=== PATIENT | female | born 1955 | race Caucasian/White ===

== ENCOUNTER 2020-10-15 10:09 | Outpatient (CLI) | payer BC, SELFPAY ==
--- NOTE | ~2020-10-15 | MR_ITS ---
EXAMINATION: MR brain/brain stem wo/w con EXAM DATE: 10/15/2020 13:41 INDICATION: R51.9 - Headache, unspecified/STAT . Left eye vision disturbance. TECHNIQUE: Magnetic resonance imaging (MRI) of the brain/brain stem obtained without contrast. Sagit rosa T1, axial diffusion, gradient echo (T2*), T1, T2, FLAIR sequences obtained. Patient was then inj ected with 15 cc intravenous Multihance contrast. Axial and coronal postcontrast T1 weighted sequence s obtained. Correlation is made to head CT from 10/14/2020. FINDINGS: There is an acute infarction in the left occipital lobe measuring up to 1.5 cm in dimension . No other acute infarctions. Mild microangiopathy. Flow voids are seen in the cerebral arteries on t he T2 weighted sequences consistent with their expected patency. There is no acute hemorrhage seen on the T2*, a susceptibility sensitive sequence. No brain mass, extra-axial collections or obstructive hydrocephalus. Left vertebral artery dominant. There are no areas of abnormal enhancement on the pos t contrast images. IMPRESSION: Small acute left occipital lobe infarction. Reviewed, dictated and finalized at location B.
[2020-10-15 13:14] LABS: Estimated Glomerular Filt Rate > 60
== END 2020-10-15 10:10 | disposition home or self-care (01) ==
PROVIDERS: PCP Internal Medicine; Visit Provider Clinical Nurse Specialist
DX: R51.9 Headache, unspecified (principal); H53.8 Other visual disturbances; I63.9 Cerebral infarction, unspecified
CPT/HCPCS: 70553; A9577

== ENCOUNTER → 2020-12-04 16:25 | Outpatient (CLI) | payer BC, SELFPAY ==
--- NOTE | ~2020-12-04 | MM_ITS ---
EXAMINATION: MM screening lia BI w diana HISTORY: Screening mammogram TECHNIQUE: Craniocaudal and mediolateral oblique 3-D tomosynthesis images were obtained and synthetic 2-D images were generated. CAD analysis was submitted and interpreted. COMPARISON: 12/06/2018, 10/01/2017, 12/05/2015 bilateral digital screening mammogram examinations BREAST PARENCHYMAL COMPOSITION: The breasts are heterogeneously dense, which may obscure small masses . FINDINGS: Increased calcifications noted on the left. Magnification views are recommended for better definition. No suspicious mass, architectural distortion, skin thickening or retraction of either breast or malig nant calcification on the right breast is evident. No other significant new or developing density or significant change is noted. IMPRESSION: 1. Increased left breast calcifications 2. Diagnostic left mammogram with magnification views is recommended for better definition of the hoa cifications. BI-RADS Category 0: Incomplete: Needs additional imaging evaluation. Reviewed, dictated and finalized at location A. IMPRESSION: 1. Increased left breast calcifications 2. Diagnostic left mammogram with magnification views is recommended for better definition of the calcifications. BI-RADS Category 0: Incomplete: Needs additional imaging evaluation.
== END ==
PROVIDERS: PCP Internal Medicine; Visit Provider Obstetrics & Gynecology
DX: Z12.31 Encounter for screening mammogram for malignant neoplasm of breast (principal); R92.8 Other abnormal and inconclusive findings on diagnostic imaging of breast
CPT/HCPCS: 77063; 77067

== ENCOUNTER → 2021-01-07 06:54 | Outpatient (CLI) | payer BC, SELFPAY ==
[2021-01-07 20:36] LABS: SARS-CoV-2 RNA PCR Negative
== END ==
PROVIDERS: PCP Internal Medicine; Visit Provider Clinical Nurse Specialist
DX: Z20.822 Contact with and (suspected) exposure to COVID-19 (principal); R05 Cough
CPT/HCPCS: C9803; U0003; U0005

== ENCOUNTER → 2021-01-31 08:19 | Outpatient (CLI) | payer BC, SELFPAY ==
--- NOTE | ~2021-01-31 | MM_ITS ---
EXAMINATION: MM diagnostic mammo unilat LT HISTORY: Indeterminate left breast calcifications on screening mammogram TECHNIQUE: Magnification views of the left breast were performed. CAD analysis was submitted and inte rpreted. COMPARISON: 12/04/2020, 12/06/2018, 10/01/2017 BREAST PARENCHYMAL COMPOSITION: The breasts are heterogeneously dense, which may obscure small masses . FINDINGS: There are grouped calcifications in the anterior third of the slightly upper breast at the 12:00 location 1.5 cm from the nipple which appear to be dystrophic in morphology. No suspicious mass or architectural distortion are identified. IMPRESSION: 1. Probably benign left breast calcifications. 2. Recommend 6 month follow-up left diagnostic mammogram. BI-RADS category 3, probably benign findings. Reviewed, dictated and finalized at location A.
== END ==
PROVIDERS: PCP Internal Medicine; Visit Provider Obstetrics & Gynecology
DX: R92.8 Other abnormal and inconclusive findings on diagnostic imaging of breast (principal)
CPT/HCPCS: 77065

== ENCOUNTER 2021-02-05 01:59 | Day surgery (SDC) | payer BC, SELFPAY ==
[2021-01-27 14:57] VITALS: BMI 27.0
[2021-02-05 10:24] VITALS: BP 110/67; PULSE 72; RESP 20; TEMP 36.5; O2SAT 100
[2021-02-05] MEDS: LACTATED RINGERS 1,000 ML 150 ML IV CONT (10:35)
--- NOTE | 2021-02-05 10:45 | WPDANESEPPF ---
Anes - Initial Pre Proc Eval Procedure: Operation Date: 02/05/21 11:00 Proposed Procedures p Screening Colonoscopy - Saul Massey MD Date/Time: 02/05/21 10:45 Surgeon: Saul Massey MD Pre Op Diagnosis: neoplasm screening Patient Data Age: 65 Gender: F Height: 1.68 m Weight: 74.3 kg Last Vital Signs Temp 36.5 C 02/05/21 10:24 Pulse 72 02/05/21 10:24 Resp 20 02/05/21 10:24 BP 110/67 02/05/21 10:24 Pulse Ox 100 02/05/21 10:24 Allergies Allergy/AdvReac Type Severity Reaction Status Date / Time No Known Allergies Allergy Unknown Verified 02/05/21 10:22 Home Medications Medication Instructions Recorded Confirmed Type multivitamin 1 tablet PO DAILY 09/27/20 01/27/21 History aspirin 325 mg tablet 325 mg PO DAILY 10/23/20 01/27/21 History atorvastatin 80 mg tablet 80 mg PO DAILY 10/23/20 01/27/21 History cholecalciferol (vitamin D3) 25 mcg PO DAILY 01/27/21 01/27/21 History [Vitamin D3] Patient hx anesthesia problems: none Family hx anesthesia problems: none PMFSH Past Medical History Medical History Colon cancer screening Depression Osteopenia Stroke Vitamin D deficiency Surgical History Surgical History History of bladder surgery Family History Family History Father Family history of heart disease in male family member before age 55 Mother Hypertension Social History Social History Smoking packs per day: 1 Smoking cigarettes per day: 20.0 Years smoked: 40 Smoking pack-years: 40.00 Smoking status: Former smoker Tobacco type: cigarettes Smoking end date: 06/14/17 Alcohol intake: former Alcohol use details: social Substance use: never Living arrangements: with family Spiritual care concerns: No Anes - Eval Final PreProcedure Day of Procedure 02/05/21 10:45 Patient weight: overweight Heart: regular rate and rhythm Lungs: clear to auscultation Airway: Mallampati scale class II Neurological: alert and oriented Last oral intake: >/= 8 hours ASA classification: III Emergent: no Anesthetic plan: proceed Anesthesia type and monitoring: general GIVS and standard monitoring Informed Consent: The patient's anesthetic plan and its attendant risks and benefits were discussed with the patient/family/POA. Questions were solicited and answers provided to the satisfaction of the patient/family/POA.
--- NOTE | 2021-02-05 10:52 | PM.HPGS ---
History of Present Illness History of Present Illness Consent: Risks, benefits, and alternatives have been discussed and questions answered. Patient agrees to proceed with procedure. Chief complaint: neoplasm screening Narrative: Kathia Pearson is a 65 year old female here for screening colonoscopy, last one over 10 years ago. Review of Systems Constitutional: Constitutional: Denies headache(s) and Denies weakness Eyes: Eyes: Denies blurry vision ENT: Reports Normal hearing present, Denies headache(s) and Denies neck pain Cardiovascular: Cardiovascular: Denies chest pain and Denies dyspnea Respiratory: Respiratory: Denies dyspnea Gastrointestinal: Gastrointestinal: Reports no additional gastrointestinal complaints Genitourinary: Genitourinary: Denies dysuria Musculoskeletal: Musculoskeletal: Denies neck pain Integumentary/Breasts: Skin/Breast: Denies dry skin Neurologic: Reports Normal hearing present, Denies headache(s) and Denies weakness Psychiatric: Psychiatric: Denies anxiety Endocrine: Endocrine: Denies change in body appearance Hematologic/Lymphatic: Hematologic/Lymphatic: Denies easy bleeding Allergic/Immunologic: Allergic/Immunologic: Denies urticaria PMFSH Past Medical History Medical History (Updated 02/05/21 @ 10:53 by Saul Massey MD) Colon cancer screening Depression Osteopenia Stroke Vitamin D deficiency Surgical History Surgical History History of bladder surgery Family History Family History Father Family history of heart disease in male family member before age 55 Mother Hypertension Social History Social History Smoking packs per day: 1 Smoking cigarettes per day: 20.0 Years smoked: 40 Smoking pack-years: 40.00 Smoking status: Former smoker Tobacco type: cigarettes Smoking end date: 06/14/17 Alcohol intake: former Alcohol use details: social Substance use: never Living arrangements: with family Spiritual care concerns: No Meds Home Medications and Allergies Home Medications Medication Instructions Recorded Confirmed Type multivitamin 1 tablet PO DAILY 09/27/20 01/27/21 History aspirin 325 mg tablet 325 mg PO DAILY 10/23/20 01/27/21 History atorvastatin 80 mg tablet 80 mg PO DAILY 10/23/20 01/27/21 History cholecalciferol (vitamin D3) 25 mcg PO DAILY 01/27/21 01/27/21 History [Vitamin D3] Allergies Allergy/AdvReac Type Severity Reaction Status Date / Time No Known Allergies Allergy Unknown Verified 02/05/21 10:22 Vital Signs Vital Signs - 24 hr 02/05/21 10:24 Temperature 97.7 F Pulse Rate 72 Respiratory Rate 20 Blood Pressure 110/67 Pulse Oximetry 100 Exam Const: General: comfortable and no acute distress HENMT: General nose exam: Normal nares present Eyes: General: appearance normal, both eyes and all related structures Neck: Neck: no JVD Resp: Auscultation: clear to auscultation bilaterally Cardio: Rate: regular rate Rhythm: regular rhythm GI: Inspection: non-distended GI Palp: Yes Soft to palpation Skin: General skin exam: normal color Neuro: General: gait normal Speech: normal speech Extrem: General: normal to inspection Psych: Mental Status: mental status grossly normal Assessment and Plan Assessment and plan (1) Colon cancer screening: Code(s): Z12.11 - Encounter for screening for malignant neoplasm of colon Status: Acute Assessment and Plan: colonoscopy
[2021-02-05 11:18] VITALS: BP 109/75; PULSE 78; RESP 15; O2SAT 98
[2021-02-05 11:28] VITALS: BP 119/79; PULSE 62; RESP 16; O2SAT 100
[2021-02-05 11:38] VITALS: BP 118/75; PULSE 61; RESP 15; O2SAT 100
== END 2021-02-05 11:56 | disposition home or self-care (01) ==
PROVIDERS: PCP Internal Medicine; Visit Provider Internal Medicine Gastroenterology
PROC: 0DJD8ZZ Inspection of Lower Intestinal Tract, Via Natural or Artificial Opening Endoscopic (ICD-10-PCS; CPT 45378; principal; 2021-02-05 11:00)
DX: Z12.11 Encounter for screening for malignant neoplasm of colon (principal); K57.30 Diverticulosis of large intestine without perforation or abscess without bleeding; K64.8 Other hemorrhoids; F32.9 Major depressive disorder, single episode, unspecified; M19.90 Unspecified osteoarthritis, unspecified site; Z86.73 Personal history of transient ischemic attack (TIA), and cerebral infarction without residual deficits; E55.9 Vitamin D deficiency, unspecified; Z87.891 Personal history of nicotine dependence; Z79.82 Long term (current) use of aspirin
CPT/HCPCS: 45378; J2704; J7120

== ENCOUNTER 2021-03-25 10:43 | Outpatient (CLI) | payer BC, SELFPAY ==
--- NOTE | ~2021-03-25 | XR_ITS ---
XR hip LT min 2V DATE: 03/25/2021 11:07 INDICATION: Left hip pain TECHNIQUE: AP and lateral views COMPARISON: None FINDINGS: No fracture or dislocation or avascular necrosis or bone destruction. The left hip joint i s well preserved. IMPRESSION: No significant abnormality Reviewed, dictated and finalized at location B. IMPRESSION: No significant abnormality
== END 2021-03-25 10:44 | disposition home or self-care (01) ==
LOC: ANHIMG 10:47
PROVIDERS: PCP Internal Medicine; Visit Provider Clinical Nurse Specialist
DX: M25.552 Pain in left hip (principal)
CPT/HCPCS: 73502

== ENCOUNTER 2021-04-28 10:00 | Outpatient (RCR) | payer BC, SELFPAY ==
--- NOTE | 2021-03-28 16:13 | PTOPEVAL ---
PHYSICAL THERAPY EVALUATION Thank you for referring Kathia Pearson to [facility].? Kathia was evaluated for the dx of left hip pain/bursitis. The patient is scheduled to be seen for therapy? 2 x/week for 4 weeks. Please review, sign, date and return this plan of care EMILY. I agree with and certify that the following plan of care is medically necessary. Referring Physician Date Attending Provider: Rashmi Ponce NP *PT Outpatient Evaluation Start: 03/28/21 12:35 Freq: Status: Active Protocol: Document 03/28/21 12:35 [facility] (Rec: 03/28/21 13:47 [facility] [id number]) Therapy Assessment Status Assessment Status Assessment Status Evaluation Evaluation Information Problem Diagnosis left hip pain Onset 3 years ago; worse since a year ago Cause no injury Additional Evaluation Detail The patient reports having left hip pain that started when trying to lift her leg in the tub, to shave. Now has trouble with sitting in a car/ on couch. The patient reports having occasions of tripping over her left foot at times; and occasionally has pain with left foot weightbearing. The patient has trouble putting her left ankle up on her right knee to tie shoes. The patient is also having trouble sleeping due to hip pain. Subjective Information The patient rides her bike 4x Query Text:As Reported By Patient/ a week for 10 miles or more; Family reports no pain with riding and walks regularly for 30 minutes. Diagnostic Tests X-Rays For This Problem Yes: hip Ok Previous Treatments Previous Treatments For This Problem none Pain Assessment Timing of Pain Assessment Timing of Pain Assessment Assessment Pain Scale Pain Scale Used Numeric (1 - 10) Self Report Pain Assessment Left Lateral Hip(s) Reported Pain Level 0 Pain Description Tender on Palpation Other Pain Description up to 10 after sitting or being still too long Pain Aggravating Factors Sitting,Weight Bearing/ Standing Pain Behaviors Guarding,Limping,Moaning Pain Score Pain Score 0: Self Report Interventions Used Interventions Used By Clinicians Education Pain Relief Interventions Used By
--- NOTE | 2021-04-17 09:03 | PCPTNOTE ---
Patient called to cancel today's appointment with front desk manager stating she was sick.
--- NOTE | 2021-04-28 10:52 | PTOPEVAL ---
PHYSICAL THERAPY DISCHARGE Thank you for referring Kathia Pearson to [facility].? The patient has completed 8 visits for the dx of left hip bursitis/pain. Goals are partially met and skilled PT peaked. DC PT. Please review, sign, date and return this plan of care EMILY. I agree with and certify that the following plan of care is medically necessary. Referring Physician Date Attending Provider: Rashmi Ponce NP *PT Outpatient Evaluation Start: 03/28/21 12:35 Freq: Status: Active Protocol: Document 04/28/21 10:04 [facility] (Rec: 04/28/21 10:46 [facility] [id number]) Therapy Assessment Status Assessment Status Assessment Status Discharge Evaluation Information Problem Diagnosis left hip pain Onset 3 years ago; worse since a year ago Cause no injury Additional Evaluation Detail The patient reports still walking and biking without pain but still having trouble with sitting. The patient feels she is 50-75% better with sitting at her hip. The patient feels she just needs further strengthening. The patient doesn't have a follow up for the MD and feels she doesn't need one- will call the MD if she feels the exercises doesn't get her far enough. Pain Assessment Timing of Pain Assessment Timing of Pain Assessment Assessment Pain Scale Pain Scale Used Numeric (1 - 10) Self Report Pain Assessment Left Lateral Hip(s) Reported Pain Level 0 Pain Frequency Acute,Chronic Other Pain Description 5 with sitting/riding in the car Pain Score Pain Score 0: Self Report Lower Extremity Range of Motion General Lower Extremity Range of Motion Reason Not Measured WFL/Left,WFL/Right Limitations Muscle Length Restriction,Pain Gross Lower Extremity Range of Motion 50-75% decreased pain with ITB Comments band with adduction left hip Lower Extremity Muscle Strength Testing General Lower Extremity Strength Reason Not Measured WNL/Left,WNL/Right Gross Lower Extremity Strength jose. hamstrings 4/5, glut meds 4/5 (improved 1/2 grade) Muscle Length Testing Muscle Length Testing Piriformis w/Hip Flexion >90 Degrees (R) Mild Tightness,(L) Mild Tightness Percy's Test Hip Muscle Length (R) Mild Tightness,(L) Mild
== END 2021-04-28 16:23 | disposition home or self-care (01) ==
LOC: ANHPT 10:00
PROVIDERS: PCP Internal Medicine; Visit Provider Nurse Practitioner
DX: M25.552 Pain in left hip (principal)
CPT/HCPCS: 97014; 97110; 97140; 97162; G0283

== ENCOUNTER 2021-05-30 12:43 | Outpatient (CLI) | payer BC, SELFPAY ==
--- NOTE | ~2021-05-30 | DEXA_ITS ---
Bone Density Report Name: DEVENDRA CAMPBELL Age: 65 Sex: Female Ethnicity: White Date of : 1955 Indication: osteopenia; postmenopausal Referring Provider: Patricia Vaughan Study: Bone densitometry was performed. Exam Date: May 30, 2021 Accession number: [id number] Bone Density: Region BMD T-score Z-score Classification AP Spine (L1-L4) 0.834 -1.9 -0.3 Osteopenia Femoral Neck (Left) 0.632 -2.0 -0.5 Osteopenia Total Hip (Left) 0.838 -0.9 0.3 Normal Total Hip Bilateral Avg 0.803 -1.1 0.0 Osteopenia Femoral Neck (Right) 0.601 -2.2 -0.8 Osteopenia Total Hip (Right) 0.767 -1.4 -0.3 Osteopenia World Health Organization criteria for BMD impression classify patients as: Normal (T-score at or above -1.0), Osteopenia (T-score between -1.0 and -2.5), or Osteoporosis (T-score at or below -2.5). 10-year Fracture Risk(1): Major Osteoporotic Fracture 11% Hip Fracture 1.7% Reported Risk Factors: [place] (), Neck BMD=0.601, BMI=25.1 (1) FRAX(R) Version 3.08. Fracture probability calculated for an untreated patient. Fracture probability may be lower if the patient has received treatment. Previous Exams: Region Exam Age BMD T-score BMD Change BMD Change Date g/cm2 vs Baseline vs Previous AP Spine(L1-L4) 05/30/2021 65 0.834 -1.9 -0.112(-11.8%) -0.093(-10.0%) 09/14/2009 53 0.927 -1.1 -0.019(-2.0%) -0.019(-2.0%) 12/06/2007 52 0.945 -0.9 Total Hip(Left) 05/30/2021 65 0.838 -0.9 -0.018(-2.1%)# -0.050(-5.6%)# 09/14/2009 53 0.887 -0.4 0.032(3.7%)* 0.032(3.7%)* 12/06/2007 52 0.855 -0.7 Total Hip(Right) 05/30/2021 65 0.767 -1.4 -0.059(-7.1%)# -0.091(-10.6%) 09/14/2009 53 0.858 -0.7 0.032(3.9%)* 0.032(3.9%)* 12/06/2007 52 0.826 -1.0 *Denotes significance at 95% confidence level, LSC for AP Spine = 0.022 g/cm2, LSC for Total Hip = 0.027 g/cm2 Clinical Information Provided by Patient: Has used the following medications: Vitamin D Patient maximum height was 67.5 Menopause Age: 52 Drinks caffeinated beverages Onset of menses at age 18 Number of children 1 Impression: The patient has low bone mass, based on the Right Femoral Neck T-score. The patient has an estimated ten-year risk of hip fracture of 1.7% and an estimated ten-year risk of major fracture of 11%, based on the WHO FRAX algorithm. No significant bone loss was observed. Discussion: BONE DENSITY IS LOW AT ONE OR MORE SKELETAL SITES
== END 2021-05-30 12:44 | disposition home or self-care (01) ==
LOC: ANHIMG 12:44
PROVIDERS: PCP Internal Medicine; Visit Provider Clinical Nurse Specialist
DX: Z78.0 Asymptomatic menopausal state (principal); M85.89 Other specified disorders of bone density and structure, multiple sites
CPT/HCPCS: 77080

== ENCOUNTER 2021-08-04 11:13 | Outpatient (CLI) | payer BC, SELFPAY ==
--- NOTE | ~2021-08-04 | MM_ITS ---
EXAMINATION: MM diagnostic mammo unilat LT HISTORY: Six-month follow-up of calcifications TECHNIQUE: Digital ML, MLO and cc images and magnification views in ML and craniocaudal views.. CAD a nalysis was submitted and interpreted. COMPARISON: 01/31/2021 diagnostic left mammogram 12/04/2020 bilateral screening mammogram BREAST PARENCHYMAL COMPOSITION: The breasts are heterogeneously dense, which may obscure small masses . FINDINGS: There are scattered benign-appearing calcifications, including calcified microhematomas and amorphous coarse calcifications of papilloma or fibroadenoma. No malignant calcification is evident. IMPRESSION: 1. Benign calcifications 2. Routine annual mammographic screening is recommended BI-RADS Category 2: Benign finding(s). Reviewed, dictated and finalized at location A. NE DESIGNER
== END 2021-08-04 11:14 | disposition home or self-care (01) ==
LOC: ANHIMG 11:19
PROVIDERS: PCP Internal Medicine; Visit Provider Obstetrics & Gynecology
DX: R92.8 Other abnormal and inconclusive findings on diagnostic imaging of breast (principal)
CPT/HCPCS: 77065

== ENCOUNTER 2021-08-27 18:08 | Emergency (ER) | payer BC, SELFPAY ==
--- NOTE | ~2021-08-27 | XR_ITS ---
XR ankle LT min 3V DATE: 08/27/2021 18:26 INDICATION: Patient fell today. Pain, extreme swelling at lateral aspect of ankle TECHNIQUE: 4 views COMPARISON: None FINDINGS: There is a transverse fracture of the tip of the lateral malleolus, measuring up to 3 mm ma ximal vertical and approximately 7.9 mm maximal transverse dimension. The fracture fragment is slight ly distally and laterally displaced. There is prominent overlying soft tissues swelling. No fracture of the medial or lateral malleoli. Ankle mortise appears intact. IMPRESSION: Fracture of tip of lateral malleolus with prominent overlying soft tissue swelling Reviewed, dictated and finalized at location A.
[2021-08-27 18:12] VITALS: BP 134/85; PULSE 110; RESP 20; TEMP 36.3; O2SAT 100
[2021-08-27 21:45] VITALS: BP 132/76; PULSE 84; RESP 18; TEMP 36.4; O2SAT 97
--- NOTE | 2021-08-28 03:00 | ED.LOWEXIN ---
HPI - Extremity Injury (Lower) General Chief Complaint: Extremity Injury, Lower Stated Complaint: left ankle injury Time Seen by Provider: 08/27/21 19:42 Source: patient Mode of arrival: ambulatory Limitations: no limitations History of Present Illness HPI Narrative: 65-year-old female presents today with complaints of left ankle pain. Patient states she was walking this evening when she tripped over a rock and fell and left ankle is now swollen. Patient denies any numbness or tingling. Pain with weightbearing and range of motion. Related Data Home Medications Medication Instructions Recorded Confirmed multivitamin 1 tablet PO DAILY 09/27/20 05/28/21 aspirin 325 mg tablet 325 mg PO DAILY 10/23/20 05/28/21 cholecalciferol (vitamin D3) 25 mcg PO DAILY 01/27/21 05/28/21 [Vitamin D3] atorvastatin 80 mg tablet 80 mg PO DAILY 08/14/21 Allergies Allergy/AdvReac Type Severity Reaction Status Date / Time No Known Allergies Allergy Unknown Verified 02/05/21 10:22 Review of Systems Review of Systems: CONSTITUTIONAL: Denies fever, chills, or sweats. EYES: Denies visual changes, redness, or discharge. ENT: Denies rhinorrhea, congestion, sore throat, or otalgia. CARDIOVASCULAR: Denies chest pain, palpitations, or edema. RESPIRATORY: Denies cough or dyspnea. GASTROINTESTINAL: Denies abdominal pain, nausea, vomiting, or diarrhea. GENITOURINARY: Denies dysuria or hematuria. SKIN: Denies rash or itching. MUSCULOSKELETAL: Left ankle pain with swelling. Denies back pain or myalgia. NEUROLOGIC: Denies headache, numbness, dizziness, or weakness. PSYCHIATRIC: Denies anxiety or depression. [facility] Past Medical History Medical History Colon cancer screening Depression Elevated liver enzymes Osteopenia Stroke Vitamin D deficiency Surgical History Surgical History History of bladder surgery Family History Family History Father Family history of heart disease in male family member before age 55 Mother Hypertension Social History Social History Smoking packs per day: 1 Smoking cigarettes per day: 20.0 Years smoked: 40 Smoking pack-years: 40.00 Smoking status: Former smoker Tobacco type: cigarettes Smoking end date: 06/14/17 Alcohol intake: former Alcohol use details: social Substance use: never Spiritual care concerns: No Exam Narrative: GENERAL: Well-appearing, well-nourished, and in no acute distress. HEAD: Normocephalic, atraumatic. EYES: PERRLA and EOMI. ENT: Nares clear, no rhinorrhea or epistaxis. Mucous membranes moist. Oropharynx without tonsillar hypertrophy exudate or other lesions. Bilateral TMs pearly garcia nonbulging NECK: Supple. No adenopathy or masses. No carotid bruits or JVD CHEST: Clear to auscultation. No respiratory distress. No wheezes rales or rhonchi HEART: Regular rate and rhythm. No murmur heard. Normal peripheral pulses. ABDOMEN: Soft, nontender, nondistended, normal active bowel sounds. EXTREMITIES: Left lateral ankle swelling, no bruising noted, tenderness with palpation. CMS intact to left foot. Normal range of motion. No edema. SKIN: Warm, dry, no rash. NEURO: No focal deficits. Alert and oriented x3. PSYCH: Normal mood and affect. Course Course Emergency Course: 65-year-old female presents today after a fall and complaints of left ankle pain. Patient with fracture to tip of lateral malleolus. Patient made aware of x-ray findings. Patient put in a short leg with stirrup splint. Instructed on crutches. Patient also aware that she is to be nonweightbearing to the left foot. Patient seems upset. Offered instruction on a walker. Patient discharged home with follow-up to Ortho. Vital Signs Vital signs: Vital Signs Temperature 36.3 C L
--- NOTE | 2021-09-01 22:53 | PC.NURSE ---
LATE ENTRY This note is being entered to document information to the patient's record. The following information was omitted on [], by [].SPLINT APPLIED TO LEFT ANKLE, PMS INTACT AFTER APPLICATION
== END 2021-08-27 21:48 | disposition home or self-care (01) ==
PROVIDERS: Emergency Provider Nurse Practitioner Family; PCP Internal Medicine
DX: S82.62XA Displaced fracture of lateral malleolus of left fibula, initial encounter for closed fracture (principal); Z87.891 Personal history of nicotine dependence; F32.9 Major depressive disorder, single episode, unspecified; W01.0XXA Fall on same level from slipping, tripping and stumbling without subsequent striking against object, initial encounter
CPT/HCPCS: 29515; 73610; 99284

== ENCOUNTER 2022-03-11 09:09 | Outpatient (CLI) | payer BC, SELFPAY ==
[2022-03-11 18:52] LABS: Alanine Aminotransferase 42 U/L (6-35); Albumin Level 4.1 g/dL (3.5-5.1); Alkaline Phosphatase 50 U/L (38-126); Anion Gap 7 mmol/L (8-16); Aspartate Amino Transferase 55 U/L (14-36); Bilirubin,Total 0.5 mg/dL (0.2-1.3); Blood Urea Nitrogen 15 mg/dL (7-17); Calcium 8.9 mg/dL (8.4-10.2); Carbon Dioxide 28 mmol/L (22-30); Chloride 105 mmol/L (98-107); Cholesterol 124 mg/dL (0-200); Estimated Glomerular Filt Rate > 60; Glucose 94 mg/dL (65-110); HDL Direct 68 mg/dL; Sodium 140 mmol/L (137-145); Triglycerides 57 mg/dL (<150)
[2022-03-11 19:02] LABS: LDL Cholesterol Direct 37 mg/dL
[2022-03-11 19:41] LABS: Iron 168 ug/dL (37-170); Percent Iron Saturation 66 % (20-50)
[2022-03-11 20:18] LABS: Basophils Absolute Auto 0.1 K/mm3 (0.0-0.1); Basophils Percent Auto 1.1 % (0.2-1.2); Eosinophils Absolute Auto 0.1 K/mm3 (0-0.3); Eosinophils Percent Auto 2.5 % (0-4.4); Hematocrit 39.1 % (37.0-47.0); Hemoglobin 12.7 g/dL (12.0-15.0); Immature Granulocyte Absolute 0.01 K/mm3 (0.00-0.031); Immature Granulocyte Percent A 0.2 % (0-0.5); Lymphocytes Absolute Auto 2.22 K/mm3 (0.9-3.2); Lymphocytes Percent Auto 40.1 % (18.3-44.2); Mean Corpuscular HGB Conc 32.5 g/dl (32-36); Mean Corpuscular Hemoglobin 32.1 pg (26-34); Mean Corpuscular Volume 98.7 fl (80-100); Monocytes Absolute Auto 0.4 K/mm3 (0.1-0.6); Neutrophils Absolute Auto 2.7 K/mm3 (1.3-6.7); Neutrophils Percent Auto 48.1 % (45.5-73.1); Platelet Count Result 250 k/mm3 (150-375); Red Blood Count 3.96 M/mm3 (4.2-5.4); Red Cell Distribution Width 13.2 % (11.5-14.5); White Blood Count 5.5 K/mm3 (4.5-10.0)
[2022-03-11 21:53] LABS: Vitamin D 25 Hydroxy 67.4 ng/mL
== END 2022-03-11 09:10 | disposition home or self-care (01) ==
LOC: ANHGOSHLAB 09:13
PROVIDERS: PCP Internal Medicine; Visit Provider Clinical Nurse Specialist
DX: I63.9 Cerebral infarction, unspecified (principal); E55.9 Vitamin D deficiency, unspecified; R74.01 Elevation of levels of liver transaminase levels
CPT/HCPCS: 36415; 80053; 80061; 82306; 82728; 83540; 83550; 84443; 85025

== ENCOUNTER 2022-03-17 09:39 | Outpatient (CLI) | payer BC, SELFPAY ==
--- NOTE | ~2022-03-17 | CT_ITS ---
EXAMINATION: CT lung screening DATE: 03/17/2022 10:06 INDICATION: History of smoking. Tobacco dependence. TECHNIQUE: Computed tomography (CT) of the chest was performed without intravenous contrast. The dose -length product was 65.10 mGy-cm. Automated exposure control and iterative reconstruction technique w ere employed. COMPARISON: None FINDINGS: Heart size normal. No thoracic lymphadenopathy. No significant pleural or pericardial effus ion. There is atherosclerosis of the aorta. There are gallstones. Small hiatal hernia. Mild thoracic spondylosis. There is a 3 mm right upper lobe nodule, image 20. There is mild emphysema. No endobronc hial lesions. There is a 6 mm pleural-based right lower lobe nodule, image 61. There is minimal apica l pleural thickening/scarring. No endobronchial lesions. No pneumothorax. No peripheral consolidation . IMPRESSION: 1. Lung-RADS category 3: Probably benign. Further evaluation is recommended with noncontrast low-dose chest CT in 6 months. Reviewed, dictated and finalized at location A. IMPRESSION: 1. Lung-RADS category 3: Probably benign. Further evaluation is recommended wit h noncontrast low-dose chest CT in 6 months.
== END 2022-03-17 09:40 | disposition home or self-care (01) ==
LOC: ANHIMG 09:40
PROVIDERS: PCP Internal Medicine; Visit Provider Clinical Nurse Specialist
DX: Z12.2 Encounter for screening for malignant neoplasm of respiratory organs (principal); Z87.891 Personal history of nicotine dependence; R92.8 Other abnormal and inconclusive findings on diagnostic imaging of breast
CPT/HCPCS: 71271

== ENCOUNTER 2022-05-29 08:39 | Outpatient (CLI) | payer BC, SELFPAY ==
--- NOTE | ~2022-05-29 | MR_ITS ---
EXAMINATION: MR brain/brain stem wo/w con DATE: 05/29/2022 09:21 INDICATION: Frequent headaches. TECHNIQUE: Magnetic resonance imaging (MRI) of the brain and brainstem was performed without and with 15 mL MultiHance intravenous contrast. COMPARISON: Brain MRI 10/15/2020 FINDINGS: There is a small old infarct in left occipital lobe. There are scattered areas of nonspecif ic increased T2-weighted signal intensity in the cerebral white matter, which is within normal limits for the patient's age. There is no intracranial hemorrhage, acute infarction, or abnormal intracrani al mass lesion. The ventricles are normal in size. The orbits are normal. The paranasal sinuses are c lear. The mastoid air cells are normal. IMPRESSION: 1. Small old infarct in left occipital lobe. Reviewed, dictated and finalized at location A. MANAGER
== END 2022-05-29 08:40 | disposition home or self-care (01) ==
PROVIDERS: PCP Internal Medicine; Visit Provider Clinical Nurse Specialist
DX: R51.9 Headache, unspecified (principal); Z86.73 Personal history of transient ischemic attack (TIA), and cerebral infarction without residual deficits
CPT/HCPCS: 70553; A9577

== ENCOUNTER 2022-06-24 11:02 | Outpatient (CLI) | payer BC, SELFPAY ==
--- NOTE | ~2022-06-24 | MMUS_ITS ---
EXAMINATION: MM diagnostic lia BI w diana, US breast BI complete HISTORY: Bilateral breast lumps at approximately 9:00 TECHNIQUE: ML, MLO and CC 3-D tomosynthesis images of both breasts were performed and synthetic 2-D i mages were generated. CAD analysis was submitted and interpreted. High resolution complete bilateral breast ultrasound examination including all 4 quadrants and subareolar areas of each breast was perfo rmed. COMPARISON: 08/04/2021 and 01/31/2021 diagnostic left mammogram examinations 12/04/2020 bilateral screening mammogram BREAST PARENCHYMAL COMPOSITION: The breasts are heterogeneously dense, which may obscure small masses . FINDINGS: MAMMOGRAPHIC FINDINGS: Bilateral benign calcifications. There is interval increased density in the outer left breast at mid depth on craniocaudal projection since 12/04/2020. ULTRASOUND: No suspicious mass or shadowing of either breast is detected. Right breast: No suspicious mass or shadowing is detected. Left breast: 12:00 2 cm from nipple: Parallel circumscribed 6.5 x 3.6 x 5.7 mm probable septated cyst or benign co mplex lesion, without internal vascularity. There is no posterior shadowing. IMPRESSION: 1. Benign findings 2. Routine annual mammographic screening is recommended BI-RADS Category 2: Benign finding(s). Reviewed, dictated and finalized at location A. RESCUE MANAGER IMPRESSION: 1. Benign findings 2. Routine annual mammographic screening is recommended BI-RADS Category 2: Benign finding(s).
== END 2022-06-24 11:03 | disposition home or self-care (01) ==
LOC: ANHIMG 11:03
PROVIDERS: PCP Internal Medicine; Visit Provider Obstetrics & Gynecology Gynecology
DX: N63.10 Unspecified lump in the right breast, unspecified quadrant (principal); N63.20 Unspecified lump in the left breast, unspecified quadrant; R92.8 Other abnormal and inconclusive findings on diagnostic imaging of breast
CPT/HCPCS: 76641; 77062; 77066; G0279

== ENCOUNTER 2022-07-22 09:35 | Outpatient (CLI) | payer BC, SELFPAY ==
[2022-07-22 20:12] LABS: Iron 168 ug/dL (37-170)
[2022-07-22 20:21] LABS: Basophils Absolute Auto 0.1 K/mm3 (0.0-0.1); Basophils Percent Auto 0.8 % (0.2-1.2); Eosinophils Absolute Auto 0.2 K/mm3 (0-0.3); Eosinophils Percent Auto 2.5 % (0-4.4); Hemoglobin 13.7 g/dL (12.0-15.0); Immature Granulocyte Absolute 0.01 K/mm3 (0.00-0.031); Immature Granulocyte Percent A 0.2 % (0-0.5); Lymphocytes Percent Auto 45.7 % (18.3-44.2); Mean Corpuscular HGB Conc 32.6 g/dl (32-36); Mean Corpuscular Volume 98.1 fl (80-100); Mean Platelet Volume 10.6 fl (7.4-10.4); Monocytes Absolute Auto 0.5 K/mm3 (0.1-0.6); Monocytes Percent Auto 7.6 % (2.6-8.5); Neutrophils Absolute Auto 2.6 K/mm3 (1.3-6.7); Neutrophils Percent Auto 43.2 % (45.5-73.1); Percent Iron Saturation 65 % (20-50); Platelet Count Result 312 k/mm3 (150-375); Red Blood Count 4.28 M/mm3 (4.2-5.4); Red Cell Distribution Width 13.2 % (11.5-14.5); White Blood Count 5.9 K/mm3 (4.5-10.0)
[2022-07-22 20:46] LABS: Alanine Aminotransferase 29 U/L (6-35); Albumin Level 4.1 g/dL (3.5-5.1); Alkaline Phosphatase 62 U/L (38-126); Anion Gap 7 mmol/L (8-16); Aspartate Amino Transferase 41 U/L (14-36); Bilirubin,Total 0.5 mg/dL (0.2-1.3); Blood Urea Nitrogen 15 mg/dL (7-17); Calcium 8.7 mg/dL (8.4-10.2); Carbon Dioxide 27 mmol/L (22-30); Chloride 105 mmol/L (98-107); Estimated Glomerular Filt Rate > 60; Glucose 107 mg/dL (65-110); Sodium 139 mmol/L (137-145)
== END 2022-07-22 09:36 | disposition home or self-care (01) ==
LOC: ANHGOSHLAB 09:37
PROVIDERS: PCP Internal Medicine; Visit Provider Clinical Nurse Specialist
DX: R74.8 Abnormal levels of other serum enzymes (principal)
CPT/HCPCS: 36415; 80053; 83540; 83550; 85025

== ENCOUNTER 2022-07-30 13:25 | Outpatient (CLI) | payer BC, SELFPAY | END 2022-07-30 13:26 | disposition home or self-care (01) | LOC: ANHGOSHLAB 13:26 | PROVIDERS: PCP Internal Medicine; Visit Provider Clinical Nurse Specialist | DX: E83.119 Hemochromatosis, unspecified (principal) | CPT/HCPCS: 36415; 81256 ==

== ENCOUNTER 2023-03-10 08:40 | Outpatient (CLI) | payer OTHER, SELFPAY ==
[2023-03-10 19:30] LABS: Alanine Aminotransferase 28 U/L (6-35); Albumin Level 4.2 g/dL (3.5-5.1); Alkaline Phosphatase 52 U/L (38-126); Anion Gap 6 mmol/L (8-16); Aspartate Amino Transferase 42 U/L (14-36); Bilirubin,Total 0.6 mg/dL (0.2-1.3); Blood Urea Nitrogen 13 mg/dL (7-17); Calcium 9.1 mg/dL (8.4-10.2); Carbon Dioxide 30 mmol/L (22-30); Chloride 106 mmol/L (98-107); Cholesterol 127 mg/dL (0-200); Estimated Glomerular Filt Rate > 60; Glucose 89 mg/dL (65-110); HDL Direct 72 mg/dL; Potassium 3.9 mmol/L (3.4-5.0); Sodium 142 mmol/L (137-145); Triglycerides 46 mg/dL (<150)
[2023-03-10 19:41] LABS: LDL Cholesterol Direct 39 mg/dL
[2023-03-10 20:13] LABS: Basophils Percent Auto 0.6 % (0.2-1.2); Eosinophils Absolute Auto 0.2 K/mm3 (0-0.3); Eosinophils Percent Auto 3.1 % (0-4.4); Hematocrit 39.1 % (37.0-47.0); Hemoglobin 12.8 g/dL (12.0-15.0); Immature Granulocyte Absolute 0.01 K/mm3 (0.00-0.031); Immature Granulocyte Percent A 0.2 % (0-0.5); Lymphocytes Absolute Auto 2.11 K/mm3 (0.9-3.2); Lymphocytes Percent Auto 40.5 % (18.3-44.2); Mean Corpuscular HGB Conc 32.7 g/dl (32-36); Mean Corpuscular Hemoglobin 31.9 pg (26-34); Mean Corpuscular Volume 97.5 fl (80-100); Mean Platelet Volume 10.8 fl (7.4-10.4); Monocytes Absolute Auto 0.4 K/mm3 (0.1-0.6); Monocytes Percent Auto 8.3 % (2.6-8.5); Neutrophils Absolute Auto 2.5 K/mm3 (1.3-6.7); Neutrophils Percent Auto 47.3 % (45.5-73.1); Platelet Count Result 249 k/mm3 (150-375); Red Blood Count 4.01 M/mm3 (4.2-5.4); Red Cell Distribution Width 13.4 % (11.5-14.5); Vitamin D 25 Hydroxy 85.7 ng/mL; White Blood Count 5.2 K/mm3 (4.5-10.0)
== END 2023-03-10 08:41 | disposition home or self-care (01) ==
PROVIDERS: PCP Internal Medicine; Visit Provider Clinical Nurse Specialist
DX: R53.83 Other fatigue (principal); Z13.228 Encounter for screening for other metabolic disorders; Z13.220 Encounter for screening for lipoid disorders; E55.9 Vitamin D deficiency, unspecified
CPT/HCPCS: 36415; 80053; 80061; 82306; 84443; 85025

== ENCOUNTER 2023-03-16 08:12 | Outpatient (CLI) | payer OTHER, SELFPAY ==
--- NOTE | ~2023-03-16 | CT_ITS ---
CT Scan of the Chest without Contrast: Clinical Indication: Lung cancer screening, personal history of nicotine dependence Technique: Contiguous sections were acquired throughout the chest without intravenous contrast. Dose reduction technique was used on this scan by utilizing automated exposure control and iterative recon struction technique. The dose-length product (DLP) was 68.41 mGy-cm. COMPARISON: 03/17/2022 Findings: There is no evidence of any significant mediastinal, hilar or axillary lymphadenopathy. The mediastin al soft tissues appear normal. There is no evidence of pleural or pericardial effusion. Stable 3 mm apical pulmonary nodule. Noted new pulmonary nodule evident. Images through the upper abdomen reveal cholelithiasis. Impression: Lung RADS 2: Benign appearance. 12 month follow-up screening CT advised. Cholelithiasis. Reviewed, dictated and finalized at [facility]. Impression: Lung RADS 2: Benign appearance. 12 month follow-up screening CT advised. Cholelithiasis.
== END 2023-03-16 08:13 | disposition home or self-care (01) ==
PROVIDERS: PCP Internal Medicine; Visit Provider Clinical Nurse Specialist
DX: Z12.2 Encounter for screening for malignant neoplasm of respiratory organs (principal); K80.20 Calculus of gallbladder without cholecystitis without obstruction; Z87.891 Personal history of nicotine dependence
CPT/HCPCS: 71271

== ENCOUNTER 2023-07-07 11:23 | Emergency (ER) | payer OTHER, SELFPAY ==
--- NOTE | ~2023-07-07 | XR_ITS ---
EXAMINATION: XR chest 2V 07/07/2023 12:35 INDICATION: Shortness of breath for 2 months PROCEDURE: 2 view chest COMPARISON: No prior studies for comparison. FINDINGS: The lungs are clear. The cardiomediastinal silhouette is within normal limits. There are no pleural effusions. There is no pneumothorax suspected. IMPRESSION: 1: NO ACUTE CARDIOPULMONARY DISEASE. Reviewed, dictated and finalized at location B. NEERING TEACHER
--- NOTE | 2023-07-07 11:24 | ECG_ITS ---
Measurements Intervals [place] Rate: 90 P: 60 ME: 127 QRS: 71 QRSD: 94 T: 55 QT: 346 QTc: 425 Interpretive Statements SINUS RHYTHM POSSIBLE LEFT ATRIAL ENLARGEMENT INCOMPLETE RIGHT BUNDLE BRANCH BLOCK BORDERLINE ST ABNORMALITY- ANTEROLAT/INF LEADS BASELINE ARTIFACT- I, II, AVR, AVL, AVF, V1-V6 BORDERLINE ECG NO PREVIOUS ECG AVAILABLE FOR COMPARISON Electronically Signed On 07-07-2023 11:36:13 LIQUOR GRINDING MILL OPERATOR by Matthew Hills D.O.
[2023-07-07 11:27] VITALS: BP 138/95; PULSE 101; RESP 16; TEMP 36.6; O2SAT 100
[2023-07-07 11:32] VITALS: BP 152/79; PULSE 92; RESP 16; TEMP 36.7; O2SAT 100
[2023-07-07 11:51] LABS: Basophils Percent Auto 0.5 % (0.2-1.2); Eosinophils Absolute Auto 0.1 K/mm3 (0-0.3); Eosinophils Percent Auto 2.3 % (0-4.4); Hematocrit 42.5 % (37.0-47.0); Immature Granulocyte Absolute 0.01 K/mm3 (0.00-0.031); Immature Granulocyte Percent A 0.2 % (0-0.5); Lymphocytes Absolute Auto 1.87 K/mm3 (0.9-3.2); Lymphocytes Percent Auto 32.7 % (18.3-44.2); Mean Corpuscular HGB Conc 32.9 g/dl (32-36); Mean Corpuscular Hemoglobin 32.3 pg (26-34); Mean Corpuscular Volume 97.9 fl (80-100); Mean Platelet Volume 10.2 fl (7.4-10.4); Monocytes Absolute Auto 0.4 K/mm3 (0.1-0.6); Monocytes Percent Auto 6.3 % (2.6-8.5); Neutrophils Absolute Auto 3.3 K/mm3 (1.3-6.7); Platelet Count Result 250 k/mm3 (150-375); Red Blood Count 4.34 M/mm3 (4.2-5.4); Red Cell Distribution Width 13.2 % (11.5-14.5); White Blood Count 5.7 K/mm3 (4.5-10.0)
[2023-07-07 12:03] LABS: INR 0.9; Prothrombin Time 12.2 Seconds (11.1-14.7)
[2023-07-07 12:05] LABS: Alanine Aminotransferase 31 U/L (6-35); Albumin Level 4.6 g/dL (3.5-5.1); Alkaline Phosphatase 55 U/L (38-126); Anion Gap 9 mmol/L (8-16); Aspartate Amino Transferase 29 U/L (14-36); Bilirubin,Total 0.4 mg/dL (0.2-1.3); Blood Urea Nitrogen 12 mg/dL (7-17); Calcium 9.1 mg/dL (8.4-10.2); Carbon Dioxide 28 mmol/L (22-30); Chloride 106 mmol/L (98-107); Estimated Glomerular Filt Rate > 60; Glucose 117 mg/dL (65-110); Potassium 3.7 mmol/L (3.4-5.0); Sodium 143 mmol/L (137-145)
--- NOTE | 2023-07-07 15:34 | PC.NURSE ---
pt decided to leave after extended wait time. pt to see Dr Daniel. left here with symptoms resolved. steady gait
--- NOTE | 2023-07-07 15:36 | PC.NURSE ---
Pt is A&Ox4 and states she no longer wants to wait. Pt left before seeing provider.
== END 2023-07-07 15:49 | disposition left against medical advice (07) ==
LOC: ANHED 15:46
PROVIDERS: Emergency Provider Emergency Medicine; PCP Internal Medicine
DX: R00.2 Palpitations (principal)
CPT/HCPCS: 36415; 71046; 80053; 85025; 85610; 93005; 99199

== ENCOUNTER 2023-08-10 12:19 | Outpatient (CLI) | payer OTHER, SELFPAY ==
--- NOTE | 2023-08-10 12:32 | ECHO_ITS ---
Patient Info Name: Kathia Pearson Age: 67 years : 1955 Gender: Female Ht: 64 in Wt: 161 lbs BSA: 1.83 m2 HR: 84 bpm BP: 120 / 80 mmHg Technical Quality: Good Exam Date: 08/10/2023 12:43 PM Exam Location: Echo Lab Patient Status: Outpatient Admit Date: 08/10/2023 Staff Ordering Physician: Patricia Vaughan Software Test Engineer: Attending Provider: Sixto Daniel DO Referring Physician: Clement CERON; Exam Type: CA echo doppler color flow Study Info Indications I45.10 - Unspecified right bundle-branch block Complete two-dimensional, color flow and Doppler transthoracic echocardiogram is performed. Summary 1. Complete two-dimensional, color flow and Doppler transthoracic echocardiogram is performed. 2. Left ventricular chamber dimension is normal. 3. Left ventricular systolic function is normal, estimated at 60-65%. 4. The left ventricular diastolic function is grade I diastolic dysfunction. 5. E/e' 9 is minimally elevated. 6. Left atrial chamber dimension is mildly enlarged. 7. There is mild mitral valve regurgitation. Left Ventricle E/e' 9 is minimally elevated. Left ventricular chamber dimension is normal. Left ventricular systolic function is normal, estimated at 60-65%. The left ventricular diastolic function is grade I diastolic dysfunction. Right Ventricle Right ventricular systolic function is normal and with normal TAPSE 2.3 cm. Right ventricular chamber dimension is normal. Left Atria Left atrial chamber dimension is mildly enlarged. Right Atria Right atrial chamber dimension is normal. Aortic Valve The aortic valve is trileaflet. There is no aortic valve stenosis. There is no aortic valve regurgitation. Pulmonic Valve There is no pulmonic regurgitation. Mitral Valve There is no mitral valve stenosis. There is mild mitral valve regurgitation. Tricuspid Valve There is no tricuspid valve regurgitation. Pericardium/Pleural There is no pericardial effusion. Inferior Vena Cava Normal inferior vena cava with >50% collapse upon inspiration consistent with normal right atrial pressure, 5 mmHg. Aorta The aortic root size at the sinus of Valsalva is normal. Left Ventricular Outflow Tract Name Value Normal LVOT 2D LVOT Diameter 2.0 cm LVOT Doppler LVOT Peak Gradient 3 mmHg LVOT Mean Gradient 2 mmHg LVOT VTI 16 cm LVOT VTI/AV VTI Ratio 0.7 LVOT Stroke Volume 51 ml LVOT CO 4.0 l/min LVOT CI 2.2 l/min/m2 Pulmonic Valve Name Value Normal PV Doppler PV Peak Gradient 3 mmHg Mitral Valve Name Value Normal MV Do
== END 2023-08-10 12:20 | disposition home or self-care (01) ==
PROVIDERS: PCP Internal Medicine; Visit Provider Internal Medicine
DX: R93.1 Abnormal findings on diagnostic imaging of heart and coronary circulation (principal); I34.0 Nonrheumatic mitral (valve) insufficiency; I51.7 Cardiomegaly; I45.10 Unspecified right bundle-branch block; Z86.73 Personal history of transient ischemic attack (TIA), and cerebral infarction without residual deficits; Z12.11 Encounter for screening for malignant neoplasm of colon
CPT/HCPCS: 93306

== ENCOUNTER 2023-11-18 10:13 | Outpatient (CLI) | payer OTHER, SELFPAY ==
--- NOTE | ~2023-11-18 | DEXA_ITS ---
Bone Density Report Name: DEVENDRA CAMPBELL Age: 68 Sex: Female Ethnicity: White Date of : 1955 Indication: postmenopausal; screening for osteoporosis; parental hip fracture; Referring Provider: DARNELL GAY Study: Bone densitometry was performed. Exam Date: November 18, 2023 Accession number: [id number] Bone Density: Region BMD T-score Z-score Classification AP Spine(L1-L4) 0.826 -2.0 -0.2 Osteopenia Femoral Neck (Left) 0.644 -1.8 -0.3 Osteopenia Total Hip (Left) 0.854 -0.7 0.6 Normal Femoral Neck (Right) 0.620 -2.1 -0.5 Osteopenia Total Hip (Right) 0.772 -1.4 -0.1 Osteopenia Total Hip Mean 0.813 -1.1 0.3 Osteopenia World Health Organization criteria for BMD impression classify patients as: Normal (T-score at or above -1.0), Osteopenia (T-score between -1.0 and -2.5), or Osteoporosis (T-score at or below -2.5). 10-year Fracture Risk(1): Major Osteoporotic Fracture 20% Hip Fracture 3.8% Reported Risk Factors: [place] (), Neck BMD=0.620, BMI=24.4, parental fracture, smoking (1) FRAX(R) Version 3.08. Fracture probability calculated for an untreated patient. Fracture probability may be lower if the patient has received treatment. Clinical Information Provided by Patient: Parent has had a hip fracture Smokes Has used the following medications: Vitamin D Patient maximum height was 67.5 Menopause Age: 52 No regular weight bearing exercise Drinks caffeinated beverages Onset of menses at age 17 Number of children 1 Impression: The patient has low bone mass, based on the Right Femoral Neck T-score. The patient has an estimated ten-year risk of hip fracture of 3.8% and an estimated ten-year risk of major fracture of 20%, based on the WHO FRAX algorithm. The patient has risk factors, including: parental hip fracture, smoking. Discussion: BONE DENSITY IS LOW AT ONE OR MORE SKELETAL SITES. THE PATIENT'S BMD AND CLINICAL RISK FACTORS CONTRIBUTE TO THIS PATIENT'S HIGH RISK OF FRACTURE. This patient's lowest T-score is low at one or more skeletal sites. It meets the World Health Organization's (WHO) criteria for ?low bone mass? (T-score between -1.0 and -2.5). The patient's 10-year risk of hip fracture and 10 year risk of a major osteoporotic fracture as calculated by FRAX exceeds the threshold where pharmacological therapy is recommended by the National Osteoporosis Foundation (NOF). However, all treatment decisions require clinical judgment and consideration of individual patient factors, including patient preferences, comorbidities, previous drug use, risk factors not captured in the FRAX model (e.g., frailty, falls, vitamin D deficiency, increased bone turnover, interval significant decline in bone density) and possible under or overestimation of fracture risk by FRAX
--- NOTE | ~2023-11-18 | MM_ITS ---
EXAMINATION: MM screening lia BI w diana HISTORY: Screening TECHNIQUE: Craniocaudal and mediolateral oblique 3-D tomosynthesis images were obtained and synthetic 2-D images were generated. CAD analysis was submitted and interpreted. COMPARISON: Comparison to multiple prior studies sequentially, with oldest reviewed study dated 10/01. BREAST PARENCHYMAL COMPOSITION: Dense: The breasts are heterogeneously dense, which may obscure small masses FINDINGS: There is no evidence of suspicious mass, calcification, or architectural distortion to sugg est malignancy in either breast. There has been no suspicious interval change. IMPRESSION: 1. No mammographic evidence of malignancy. 2. Recommend routine screening mammography in one year. BI-RADS Category 1: Negative Reviewed, dictated and finalized at location B.
== END 2023-11-18 10:14 | disposition home or self-care (01) ==
PROVIDERS: PCP Internal Medicine; Visit Provider Advanced Practice Midwife
DX: Z12.31 Encounter for screening mammogram for malignant neoplasm of breast (principal); Z78.0 Asymptomatic menopausal state; M85.89 Other specified disorders of bone density and structure, multiple sites
CPT/HCPCS: 77063; 77067; 77080

== ENCOUNTER 2023-12-08 13:28 | Outpatient (CLI) | payer OTHER, SELFPAY ==
[2023-12-08 20:28] LABS: Appearance Urine Cloudy (Clear); Bacteria Urine None Seen /hpf; Bilirubin Urine 1+ (Negative); Blood Urine 3+ (Negative); Color Urine Red (Yellow); Glucose Urine UA Negative (Negative); Ketones Urine Negative (Negative); Leukocyte Esterase Ur 3+ LEU/UL (Negative); Nitrate Urine Negative (Negative); Protein Urine 3+ mg/dL (Negative); RBC Urine >100 /hpf (0-2); Specific Grav Ur 1.009 (1.001-1.035); Squamous Epithelial Cell Urine Occasional /hpf (Few); Urobilinogen Urine 0.2 mg/dL (<2.0); WBC Urine >100 /hpf (0-3); pH Urine 5.5 (5.0-9.0)
[2023-12-08 20:30] LABS: Add Urine Microscopic? YES
== END 2023-12-08 13:29 | disposition home or self-care (01) ==
LOC: ANHGOSHLAB 13:29
PROVIDERS: PCP Internal Medicine; Visit Provider Clinical Nurse Specialist
DX: R39.9 Unspecified symptoms and signs involving the genitourinary system (principal)
CPT/HCPCS: 81001; 87086

== ENCOUNTER 2023-12-08 13:35 | Outpatient (CLI) | payer OTHER, SELFPAY ==
--- NOTE | ~2023-12-08 | CT_ITS ---
EXAMINATION: CT abdomen pelvis wo con DATE: 12/08/2023 13:48 INDICATION: Unspecified abdominal pain. TECHNIQUE: Computed tomography (CT) of the abdomen and pelvis was performed without intravenous contr ast. Automated exposure control and iterative reconstruction technique were employed. The dose-length product was 358.81 mGy-cm. COMPARISON: CT abdomen and pelvis 06/20/2010 FINDINGS: The visualized portions of the lung bases demonstrate mild atelectasis. There is a pneumato ross in right lower lobe. No pleural effusion. The heart size is normal. No pericardial effusion. The liver and spleen are normal. There are gallstones in the gallbladder, which is normal in size. The p ancreas, adrenal glands, and left kidney are normal. There is a 1 mm stone in right kidney. There is diverticulosis of the colon without evidence of diverticulitis. There are no dilated loops of bowel. The appendix is normal. There are no pathologically enlarged lymph nodes. There is no free intraperit jean fluid. There is mild thoracic and lumbar spondylosis. IMPRESSION: 1. Cholelithiasis. No evidence of acute cholecystitis. Reviewed, dictated and finalized at location A.
== END 2023-12-08 13:36 ==
LOC: GOSHIMG 13:36
PROVIDERS: PCP Internal Medicine; Visit Provider Clinical Nurse Specialist
DX: R10.9 Unspecified abdominal pain (principal); R31.9 Hematuria, unspecified; R39.9 Unspecified symptoms and signs involving the genitourinary system; K80.20 Calculus of gallbladder without cholecystitis without obstruction
CPT/HCPCS: 74176

== ENCOUNTER 2023-12-17 10:14 | Outpatient (CLI) | payer OTHER, SELFPAY ==
--- NOTE | ~2023-12-17 | CT_ITS ---
CT of the Abdomen and Pelvis: Indication: Hematuria Technique: 2.5 mm axial scans were obtained through the abdomen and pelvis prior to and following in travenous administration of 130 cc of Omnipaque 350. Dose reduction technique was used on this scan b y utilizing automated exposure control and iterative reconstruction technique. The dose-length produc t (DLP) was 1344.33 mGy-cm. COMPARISON: 12/08/2023 Findings: Scans through the lung bases are unremarkable. Punctate nonobstructing right renal stone present. No left renal stone seen. No ureteral stone or hyd ronephrosis on either side. The liver, spleen, pancreas, and adrenal glands are within normal limits. Large calcified gallstones are present. No evidence of aortic aneurysm. No lymphadenopathy. No bowel obstruction or bowel wall thickening. There is no evidence to suggest acute appendicitis. Images through the pelvis were performed. Urinary bladder unremarkable. No pelvic mass seen. No ascit es. Impression: No etiology for hematuria identified. Cholelithiasis. Reviewed, dictated and finalized at [facility]. Impression: No etiology for hematuria identified. Cholelithiasis.
[2023-12-17 10:48] LABS: Estimated Glomerular Filt Rate > 60
== END 2023-12-17 10:15 ==
LOC: MICIMG 10:15
PROVIDERS: PCP Internal Medicine; Visit Provider Clinical Nurse Specialist
DX: R31.9 Hematuria, unspecified (principal); K80.20 Calculus of gallbladder without cholecystitis without obstruction
CPT/HCPCS: 74178; Q9967

== ENCOUNTER 2024-07-19 07:56 | Outpatient (CLI) | payer OTHER, SELFPAY ==
--- OUTSIDE RECORDS SUMMARY | 2024-07-19 07:59 | XMS_ITS | Continuity of Care Document ---
Author Organization [facility] Address [address] [place] [address] [facility] [address] [place] [address] Phone Care Team Providers Care Make Up Arranger Name Role Phone Renee Mora Unavailable Unavailable Advance Directives Directive Yes / No Effective Date File Name No Information Encounters Encounter Description Practice Location Reason(s) For Visit Diagnoses Date Provider Providers Copied on Encounter [facility], [id number] [place] [address] [address], [place], [place], [id number], [place] tel:[phone] [facility] No Information [phone] Abby Duran. [address] , [address], [place], [address], [place]. tel:[phone] Family History Family Member Type Diagnosis Age At Onset No Information Payers Payer name Insurance type Covered republican ID Authoriza ticed(s) [employer] SOI CI [id number] Social History Type Description Quantity Date Captured Comments Sex Female Smoking Status No Information Chief Complaint And Reason For Visit No Information Reason For Referral Reason For Referral No Information History Of Present Illness Encounter Date Complaint History Of Prese nt Illness No Information Functional Status Date Functional Assessmen t No Information Instructions Date Instruction Additional Infor mation No Information Assessments Type Assessment Date No Information Patient Care Teams Name Effective Dates (start - stop) Status Members No Information
[2024-07-19 14:07] LABS: Basophils Absolute Auto 0.1 K/mm3 (0.0-0.1); Basophils Percent Auto 0.8 % (0.2-1.2); Eosinophils Absolute Auto 0.2 K/mm3 (0-0.3); Eosinophils Percent Auto 3.1 % (0-4.4); Hematocrit 40.8 % (37.0-47.0); Hemoglobin 13.6 g/dL (12.0-15.0); Immature Granulocyte Absolute 0.01 K/mm3 (0.00-0.031); Immature Granulocyte Percent A 0.2 % (0-0.5); Lymphocytes Absolute Auto 2.13 K/mm3 (0.9-3.2); Mean Corpuscular HGB Conc 33.3 g/dl (32-36); Mean Corpuscular Hemoglobin 32.1 pg (26-34); Mean Corpuscular Volume 96.2 fl (80-100); Mean Platelet Volume 11.3 fl (7.4-10.4); Monocytes Absolute Auto 0.4 K/mm3 (0.1-0.6); Monocytes Percent Auto 7.1 % (2.6-8.5); Neutrophils Absolute Auto 3.3 K/mm3 (1.3-6.7); Neutrophils Percent Auto 53.8 % (45.5-73.1); Platelet Count Result 228 k/mm3 (150-375); Red Blood Count 4.24 M/mm3 (4.2-5.4); Red Cell Distribution Width 13.3 % (11.5-14.5); White Blood Count 6.1 K/mm3 (4.5-10.0)
[2024-07-19 16:36] LABS: Alanine Aminotransferase 24 U/L (6-35); Alkaline Phosphatase 51 U/L (38-126); Anion Gap 10 mmol/L (4-12); Aspartate Amino Transferase 47 U/L (14-36); Bilirubin,Total 0.5 mg/dL (0.2-1.3); Blood Urea Nitrogen 19 mg/dL (7-17); Calcium 9.4 mg/dL (8.4-10.2); Carbon Dioxide 28 mmol/L (22-30); Chloride 105 mmol/L (98-107); Cholesterol 122 mg/dL (0-200); Estimated Glomerular Filt Rate > 60; Glucose 78 mg/dL (65-110); HDL Direct 68 mg/dL; Potassium 4.6 mmol/L (3.4-5.0); Sodium 143 mmol/L (137-145); Triglycerides 73 mg/dL (<150)
[2024-07-19 16:47] LABS: LDL Cholesterol Direct 31 mg/dL
== END 2024-07-19 07:57 | disposition home or self-care (01) ==
PROVIDERS: PCP Internal Medicine; Visit Provider Clinical Nurse Specialist
DX: I63.9 Cerebral infarction, unspecified (principal); M85.80 Other specified disorders of bone density and structure, unspecified site; E83.110 Hereditary hemochromatosis; R74.8 Abnormal levels of other serum enzymes; R53.83 Other fatigue; R31.9 Hematuria, unspecified; Z13.220 Encounter for screening for lipoid disorders; Z13.228 Encounter for screening for other metabolic disorders; Z86.73 Personal history of transient ischemic attack (TIA), and cerebral infarction without residual deficits; Z72.0 Tobacco use
CPT/HCPCS: 36415; 80053; 80061; 82306; 85025

== ENCOUNTER 2025-01-10 14:13 | Outpatient (CLI) | payer OTHER, SELFPAY ==
--- NOTE | ~2025-01-10 | MM_ITS ---
EXAMINATION: MM screening lia BI w diana HISTORY: Screening TECHNIQUE: Craniocaudal and mediolateral oblique 3-D tomosynthesis images were obtained and synthetic 2-D images were generated. CAD analysis was submitted and interpreted. COMPARISON: Comparison to multiple prior studies sequentially, with oldest reviewed study dated 12/06. BREAST PARENCHYMAL COMPOSITION: Dense: The breasts are heterogeneously dense, which may obscure small masses FINDINGS: There is no evidence of suspicious mass, calcification, or architectural distortion to sugg est malignancy in either breast. There has been no suspicious interval change. IMPRESSION: 1. No mammographic evidence of malignancy. 2. Recommend routine screening mammography in one year. BI-RADS Category 1: Negative Reviewed, dictated and finalized at location B.
== END 2025-01-10 14:14 | disposition home or self-care (01) ==
LOC: ANHIMG 14:15
PROVIDERS: PCP Internal Medicine; Visit Provider Obstetrics & Gynecology Gynecology
DX: Z12.31 Encounter for screening mammogram for malignant neoplasm of breast (principal)
CPT/HCPCS: 77063; 77067

== ENCOUNTER 2025-03-01 10:54 | Outpatient (CLI) | payer OTHER, SELFPAY ==
[2025-03-01 12:58] LABS: Add Urine Microscopic? NO; Appearance Urine Clear (Clear); Glucose Urine UA Negative (Negative); Leukocyte Esterase Ur Negative LEU/UL (Negative); Nitrate Urine Negative (Negative); Specific Grav Ur 1.005 (1.001-1.035)
[2025-03-01 13:03] LABS: Iron 189 ug/dL (37-170)
[2025-03-01 13:08] LABS: Hematocrit 44.2 % (37.0-47.0); Hemoglobin 14.7 g/dL (12.0-15.0); Immature Granulocyte Percent A 0.3 % (0-0.5); Lymphocytes Absolute Auto 2.33 K/mm3 (0.9-3.2); Mean Corpuscular HGB Conc 33.3 g/dl (32-36); Mean Corpuscular Hemoglobin 32.4 pg (26-34); Mean Corpuscular Volume 97.4 fl (80-100); Nucleated Red Blood Cells Absolute Auto 0.000 K/mm3 (0.0-0.012); Nucleated Red Blood Cells Perc 0.0 % (0.0-0.2); Platelet Count Result 254 k/mm3 (150-375); Red Blood Count 4.54 M/mm3 (4.2-5.4); White Blood Count 7.1 K/mm3 (4.5-10.0)
[2025-03-01 13:11] LABS: Alanine Aminotransferase 23 U/L (6-35); Albumin Level 4.5 g/dL (3.5-5.1); Alkaline Phosphatase 62 U/L (38-126); Anion Gap 5 mmol/L (4-12); Aspartate Amino Transferase 54 U/L (14-36); Bilirubin,Total 0.5 mg/dL (0.2-1.3); Blood Urea Nitrogen 15 mg/dL (7-17); Calcium 9.4 mg/dL (8.4-10.2); Carbon Dioxide 31 mmol/L (22-30); Chloride 107 mmol/L (98-107); Estimated Glomerular Filt Rate > 60; Glucose 72 mg/dL (65-110); Potassium 4.5 mmol/L (3.4-5.0); Sodium 143 mmol/L (137-145); Total Protein 7.6 g/dL (6.3-8.2)
[2025-03-01 13:12] LABS: Percent Iron Saturation 74 % (20-50)
[2025-03-01 13:45] LABS: Ferritin 99.70 ng/mL (11.1-264)
[2025-03-01 13:49] LABS: Thyroid Stimulating Hormone 1.720 uIU/mL (0.465-4.680)
[2025-03-01 14:15] LABS: Vitamin B12 > 1000.0 pg/mL (239-931)
== END 2025-03-01 10:55 | disposition home or self-care (01) ==
PROVIDERS: PCP Internal Medicine; Visit Provider Clinical Nurse Specialist
DX: R74.8 Abnormal levels of other serum enzymes (principal); R53.83 Other fatigue; R06.02 Shortness of breath; E83.110 Hereditary hemochromatosis
CPT/HCPCS: 36415; 80053; 81003; 82607; 82728; 83540; 83550; 84443; 85025

== ENCOUNTER 2025-03-01 11:05 | Outpatient (CLI) | payer OTHER, SELFPAY ==
--- NOTE | ~2025-03-01 | XR_ITS ---
Examination: XR chest 2V Clinical History: Shortness of breath x 2 weeks Comparison: X-rays 07/07/2023 Technique: PA and Lateral Findings: Cardiomediastinal silhouette normal size and configuration. Lungs clear. No acute bony abnormality. IMPRESSION: 1. No acute cardiopulmonary findings. Reviewed, dictated and finalized at location R.
== END 2025-03-01 11:06 | disposition home or self-care (01) ==
PROVIDERS: PCP Internal Medicine; Visit Provider Clinical Nurse Specialist
DX: R06.02 Shortness of breath (principal)
CPT/HCPCS: 71046